=== PATIENT | female | born 1950 | race Caucasian/White ===

== ENCOUNTER → 2017-09-05 | Outpatient (CLI) | payer MEDICARE, OTHER ==
--- NOTE | 2017-09-05 14:48 | BD ---
EXAMINATION TYPE: MG DEXA axial skeleton. DATE OF EXAM: 09/05/2017 COMPARISON: NONE CLINICAL HISTORY: Height: 63 Weight: 134.4 FRAX RISK QUESTIONS: Alcohol (3 or more units per day): no Family History (Parent hip fracture): no Glucocorticoids (More than 3mos): yes (Ex: prednisone, prednisolone, methylprednisolone, dexamethasone, and hydrocortisone). History of Fracture in Adulthood: no Secondary Osteoporosis: 1. Type 1 Diabetes: no 2. Hyperthyroidism: no 3. Menopause before 45: no 4. Malnutrition: no 5. Chronic liver disease: no Rheumatoid Arthritis: yes Current Tobacco Use: no RISK FACTORS HISTORY OF: Family History of Osteoporosis: unsure Active: yes Diet low in dairy products/other sources of calcium: no Postmenopausal woman: age 49 Lost more than 2 inches in height since high school: no Adrenal Insufficiency: no MEDICATIONS: STEROIDS FOR ASTHMA Additional History: EXAM MEASUREMENTS: Bone mineral densitometry was performed using the EpiGa[employer] System. 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 NOTE: T-SCORE=SD OF THE YOUNG ADULT MEAN.
--- NOTE | 2017-09-08 11:01 | MM ---
Reason for exam: screening (asymptomatic). Last mammogram was performed 1 year and 7 months ago. History: Patient is postmenopausal and is nulliparous. Family history of breast cancer in sister at age 54. Took hormonal contraceptives for 5 years beginning at age 18. Physical Findings: A clinical breast exam by your physician is recommended on an annual basis and results should be correlated with mammographic findings. MG 3D Screening Mammo W/Cad Bilateral CC and MLO view(s) were taken. Prior study comparison: February 17, 2016, bilateral MG screening mammo w CAD. December 26, 2014, bilateral MG screening mammo w CAD. The breast tissue is heterogeneously dense. This may lower the sensitivity of mammography. No suspicious abnormality. No significant changes when compared with prior studies. ASSESSMENT: Negative, BI-RAD 1 RECOMMENDATION: Routine screening mammogram of both breasts in 1 year.
== END | disposition home or self-care (01) ==
LOC: RADMAMWWP 08:59
PROVIDERS: ATTEND Family Medicine
DX: Z12.31 Encounter for screening mammogram for malignant neoplasm of breast (principal); M85.88 Other specified disorders of bone density and structure, other site; M81.0 Age-related osteoporosis without current pathological fracture
CPT/HCPCS: 77063; 77067; 77080

== ENCOUNTER → 2018-01-09 | Outpatient (CLI) | payer MEDICARE, OTHER ==
--- NOTE | 2018-01-09 12:01 | MR ---
EXAMINATION TYPE: MR shoulder LT wo con DATE OF EXAM: 01/09/2018 COMPARISON: HISTORY: Pain in bilateral shoulders TECHNIQUE: Multiplanar, multisequence imaging of the left shoulder is performed without contrast. FINDINGS: Bicipital tendon appears to be displaced in from the bicipital groove. There is increased f luid surrounding the tendon compatible tendinosis. Intracapsular portion of the tendon appears intact . Diffuse increased signal throughout the distal margin of the subscapularis tendon including the inser tion suggestive of at least a partial through thickness tear. No retraction. There is intrasubstance signal involving the infraspinatus tendon near the musculotendinous junction. There is no through thickness tear. No retraction. There is a partial through thickness tear involving the anterior anterior fibers of the supraspinatus tendon with no retraction. DeGraff there is a small amount of fluid within the joint space as well a s within the subdeltoid bursa. Bony labrum are intact. Inferior glenohumeral ligament is intact. No evidence of marrow edema or contusion. Suprascapular Notch has a normal appearance. IMPRESSION: 1. The biceps tendon appears dislocated from the bicipital groove and findings are suggestive of bici pital tendinosis. At the level of the neck of the humerus there appears to be intrasubstance split te ar of the biceps tendon. 2. There is an 11 mm through thickness tear anterior fibers distal margin supraspinatus tendon with n o retraction. 3. Diffuse tendinopathy and partial tear with no retraction distal subscapularis tendon. 4. Tendinopathy infraspinatus tendon.
--- NOTE | 2018-01-09 15:08 | MR ---
EXAMINATION TYPE: MR shoulder RT wo con DATE OF EXAM: 01/09/2018 COMPARISON: HISTORY: Pain in bilateral shoulders TECHNIQUE: Multiplanar, multisequence imaging of the right shoulder is performed without contrast. FINDINGS: Rotator Cuff: There is abnormal intrasubstance signal involving the distal margin of the supraspinatu s and infraspinatus tendons compatible with tendinopathy. There is a partial through thickness tear o f the anterior fibers near the insertion measuring 6 mm. No retraction. Additional focal area of abno rmal signal along the undersurface of the supraspinatus tendon near the insertion at the level of its mid fibers measuring 4 mm compatible with a partial undersurface tear. Subscapularis tendon is intact. There is mild intrasubstance signal near the insertion suggestive of tendinopathy. Acromioclavicular Joint: Hypertrophy of the AC joint is noted with mass effect compatible with imping ement. Glenohumeral Joint: Small amount of fluid in the joint space. Glenohumeral ligaments appear intact. Labrum: The labrum appears grossly intact given limitation of non-arthrogram study. Biceps Tendon: The bicipital tendon appears to be displaced from the bicipital groove and there is in creased fluid surrounding the tendon compatible tendinosis. Tendon is not seen within the rotator int erval to the level of the biceps anchor. No retraction. Bone marrow signal: Focal areas of abnormal marrow signal involving the humeral head likely related t o cystic changes from chronic impingement. IMPRESSION: 1. Bicipital tendon is displaced from the bicipital groove with findings compatible with tendinosis. There is poor visualization the tendon within the rotator interval. Biceps tendon tear is not exclude d. 2. Tendinopathy of the supra and infraspinatus tendons with partial through thickness tear measuring 6 mm within the anterior fibers of the supraspinatus tendon near the insertion.
== END | disposition home or self-care (01) ==
LOC: RADMRIMAIN 06:42
PROVIDERS: ATTEND Family Medicine
DX: M25.512 Pain in left shoulder (principal); M25.511 Pain in right shoulder

== ENCOUNTER 2018-03-25 06:49 | Day surgery (SDC) | payer MEDICARE, OTHER ==
[2018-03-18 16:02] VITALS: BMI 24.1
--- NOTE | 2018-03-24 13:49 | HP ---
HISTORY AND PHYSICAL DATE OF SERVICE: 03/25/2018 Angela Yung, a 68-year-old patient is seen with progressive left shoulder pain. We discussed treatment options. She elected to proceed with arthroscopy. Consent was obtained. PAST MEDICAL HISTORY: Hypothyroidism, asthma. PAST SURGICAL HISTORY: Noncontributory. MEDICATIONS: 1. ProAir. 2. Pulmicort. 3. Ibuprofen. ALLERGIES: CLINDAMYCIN. SOCIAL HISTORY: Patient denies tobacco use. PHYSICAL EXAMINATION EVALUATION OF LEFT SHOULDER: Flexion 130 degrees, abduction 110 degrees, external rotation is 50 degrees with weakness, tenderness along the anterior lateral acromion rotator cuff insertion site. Impingement sign is positive at 80 degrees. Drop-arm sign is positive. Distal neurovascular exam is intact. LEFT SHOULDER RADIOGRAPHS: Revealed a type 2 anterior acromion and acromioclavicular joint osteoarthritis. Left shoulder MRI revealed rotator cuff tear and partial biceps tendon tear. IMPRESSION: Left shoulder impingement with rotator cuff tear and partial biceps tendon tear. PLAN: Left shoulder arthroscopy with subacromial decompression, probable arthroscopic rotator cuff repair, possible biceps tenotomy and debridement. MMODL / IJN: [id number] /
[~2018-03-25 06:49] MED LIST: DEXAMETHASONE SOD PHOSPHATE 10 MG/ML 1 ML VIAL IV ONE; HYDROmorphone 0.5 MG/0.5 ML SYRINGE IVP PRN; LACTATED RINGERS 1,000 ML IV SCH; LIDOCAINE 1% 20 ML VIAL (10MG/ML) FOR IV START INTRADERMA PRN; MIDAZOLAM 2 MG/2 ML VIAL IV PRN; ONDANSETRON 4 MG/2 ML VIAL IVP ONE; SCOPOLAMINE 1.5MG/72HR PATCH TRANSDERM ONE; ceFAZolin 1,000 MG in EMPTY BAG 1 BAG IVPB ONE
[2018-03-25 07:30] LABS: Glucose,Whole Blood 87 mg/dL (75-99)
[2018-03-25] MEDS ORDERED: PROPOFOL 10 MG/ML 20 ML VIAL IV ONE (08:26)
[2018-03-25] MEDS ORDERED: NEOSTIGMINE 1 MG/ML 10 ML VIAL ONE (08:26)
[2018-03-25] MEDS ORDERED: SUCCINYLCHOLINE CHLORIDE 100 MG/5 ML SYR IV ONE (08:26)
[2018-03-25] MEDS ORDERED: ePHEDrine SULFATE/0.9% NACL/PF 50 MG/5 ML SYRINGE IV ONE (08:26)
[2018-03-25] MEDS ORDERED: ROCURONIUM BROMIDE 10 MG/ML 10 ML VIAL IV ONE (08:26)
[2018-03-25] MEDS ORDERED: GLYCOPYRROLATE 0.2 MG/ML 2 ML VIAL ONE (08:26)
[2018-03-25] MEDS ORDERED: ROPIVACAINE 5 MG/ML 30 ML VIAL ONE (08:26)
[2018-03-25] MEDS ORDERED: LIDOCAINE 1% INJ 10MG/ML (20 ML MDV) ONE (08:26)
[2018-03-25] MEDS ORDERED: LACTATED RINGERS 1,000 ML IV ONE (09:45)
--- NOTE | 2018-03-25 09:58 | P.ONQ ---
Anesthesiology Proc Note - PNB - Peripheral Nerve Block Performed Left Interscalene Single Time Out Performed: Yes Procedure Start Time: 07:56 Procedure Stop Time: 08:05 Indication: Acute Post-Operative Pain, Analgesia, Requested by physician Sedation Type: Sedate with meaningful contact maintained Preparation: Sterile Prep Position: Supine Catheter: None Needle Size: 50mm (2"), 150mm (6") Needle Gauge: 21 Technique: Ultrasound Injectate: 0.5% Ropivacaine (see comment for volume) Blood Aspirated: No Pain Paresthesia on Injection Noted: No Resistance on Injection: Normal Events: Uneventful and Well Tolerated (20 ml Ropivicaine)
[2018-03-25 10:26] VITALS: TEMP 97
--- NOTE | 2018-03-25 10:31 | P.OP ---
Date of Procedure: 03/25/18 Preoperative Diagnosis: Left shoulder impingement Postoperative Diagnosis: 1. Left shoulder rotator cuff tear 2. Left shoulder impingement 3. Left shoulder acromioclavicular joint osteoarthritis 4. Left shoulder partial long head biceps tendon tear 5. Left shoulder superior labral tear Procedure(s) Performed: 1. Left shoulder arthroscopic rotator cuff repair 2. Left shoulder arthroscopic subacromial decompression 3. Left shoulder arthroscopic Katy procedure 4. Left shoulder arthroscopic biceps tenotomy 5. Left shoulder arthroscopic debridement labral tear Implants: 2Arthrex 4.75 swivel lock anchors 2Arthrex 5.5 swivel lock anchors Anesthesia: GETA, regional (Interscalene block) Surgeon: Dinh Stephenson Aircraft Engine Assembler #1: Ken Leija Estimated Blood Loss (ml): 13 Pathology: none sent Condition: stable Disposition: PACU Indications for Procedure: 68-year-old patient seen with progressive left shoulder pain. After having treatment options discussed, she elected to proceed with arthroscopy. Operative Findings: see description of procedure Description of Procedure: Patient underwent an interscalene block by department of anesthesia. The patient was then taken to the operative suite. The patient underwent a general anesthetic by the department of anesthesia. The patient was placed into a lateral position and secured. There was appropriate padding of the bony prominence. Left shoulder was then prepped and draped in normal sterile orthopedic fashion. We placed the extremity in 10 pounds of longitudinal traction. A posterior incision was now made for a posterior working portal site. The trocar and cannula were inserted into the glenohumeral joint. Arthroscopy was initiated. Spinal needle was now inserted anteriorly, to ascertain the anterior working portal site. An incision was now made in that area, a trocar was inserted followed by a probe. There were grade 1/2 chondromalacia changes of the humeral head and grade 2 chondromalacia changes central portion glenoid fossa. There was superficial tearing of the superior labrum. There was partial tearing long head biceps tendon. There is a full- thickness rotator cuff tear clearly visualized from glenohumeral side. I performed an arthroscopic biceps tenotomy. I debrided the superficial labral tear down to stable tissue. The residual labrum appeared stable. Instruments were now removed from glenohumeral joint. Utilizing the posterior working portal site, the trocar and cannula were inserted into the subacromial space. Arthroscopy initiated. I made an incision 2 fingerbreadths lateral to the acromion. I introduced my trocar followed by my ArthroCare ablator. I now began ablating thick subacromial bursal tissue, which exposed the undersurface of the anterior acromion. There was diminished subacromial space. There was a very prominent anterior acromion. A motorized bur was introduced and a subacromial decompression was performed. I also excised some osteophytes off the inferior aspect of the distal clavicle. The AC joint was visualized and noted to be fairly arthritic. The motorized bur was introduced in the anterior portal site and a Katy procedure was performed without difficulty, decompressing the AC joint nicely. I turned my attention to the rotator cuff. There was a 2.5 cm rotator cuff tear. I debrided the margins getting down to stable tendon tissue. The defect now measured 3 cm. I introduced my motorized bur and abraded the footprint area, getting some petechial bleeding. I now made an accessory portal site off the lateral aspect of the acromion. I punched two holes medial for medial row fixation with the assistance of Keyon CONDON carefully tapping the punch with a mallet as I held the punch and the camera. I now introduced both anchors into the pre- punched holes and Keyon CONDON tapped them with the mallet as I held anchors and the camera. Keyon CONDON now screwed the anchors in place a while I held the anchor guide and camera. All 8 limbs of suture were now passed through good bites of rotator cuff tendon. I now punched 2 holes for lateral row fixation again I held the punch and camera while Keyon CONDON used a mallet to tap in the punch. We now passed sutures through both anchors and individually I introduced the anchors into the pre-punch holes I held the anchor guide in position with one hand holding the camera with the other hand while Keyon CONDON tensioned the sutures and screwed in the anchors one at a time. All residual suture limbs were now clipped. We had good compression of the tendon along the entire footprint. I injected 1 mL Renue intra-articular. Instruments now removed from the portal sites. All portal sites were approximated with nylon suture. Sterile dressings were applied followed by a shoulder immobilizer. Ken CONDON assisted in this complex case. The patient was awakened, transferred to a bed, and taken to recovery in stable condition.
[2018-03-25 11:47] VITALS: BP 145/67; PULSE 70; RESP 16
== END 2018-03-25 12:30 | disposition home or self-care (01) ==
LOC: OR 06:49
PROVIDERS: ATTEND Orthopaedic Surgery
DX: M75.102 Unspecified rotator cuff tear or rupture of left shoulder, not specified as traumatic (principal); M75.42 Impingement syndrome of left shoulder; M19.012 Primary osteoarthritis, left shoulder; S46.112A Strain of muscle, fascia and tendon of long head of biceps, left arm, initial encounter; S43.432A Superior glenoid labrum lesion of left shoulder, initial encounter; X58.XXXA Exposure to other specified factors, initial encounter; M94.212 Chondromalacia, left shoulder; M25.712 Osteophyte, left shoulder; K44.9 Diaphragmatic hernia without obstruction or gangrene; E11.9 Type 2 diabetes mellitus without complications; K21.9 Gastro-esophageal reflux disease without esophagitis; E03.9 Hypothyroidism, unspecified; J45.909 Unspecified asthma, uncomplicated; Z79.1 Long term (current) use of non-steroidal anti-inflammatories (NSAID); Z79.51 Long term (current) use of inhaled steroids; Z79.899 Other long term (current) drug therapy; Z88.1 Allergy status to other antibiotic agents
CPT/HCPCS: 29826; 29827; 29824; 64415; C1713 ×3; C1765; J2250; J1100; J2710; J2405; J2001; J0690; J2795; J0330; J2704

== ENCOUNTER → 2018-10-22 | Outpatient (CLI) | payer MEDICARE, OTHER ==
--- NOTE | 2018-10-27 13:31 | MM ---
Reason for exam: screening (asymptomatic). Last mammogram was performed 1 year and 2 months ago. History: Patient is postmenopausal and is nulliparous. Family history of breast cancer in sister at age 54. Took hormonal contraceptives for 5 years beginning at age 18. Physical Findings: A clinical breast exam by your physician is recommended on an annual basis and results should be correlated with mammographic findings. MG 3D Screening Mammo W/Cad Bilateral CC and MLO view(s) were taken. Prior study comparison: September 05, 2017, bilateral MG 3d screening mammo w/cad. February 17, 2016, bilateral MG screening mammo w CAD. The breast tissue is heterogeneously dense. This may lower the sensitivity of mammography. Benign appearing bilateral calcifications. No suspicious abnormality. Left intramammary node is stable. ASSESSMENT: Benign, BI-RAD 2 RECOMMENDATION: Routine screening mammogram of both breasts in 1 year.
== END ==
LOC: RADMAMWWP 09:01
PROVIDERS: ATTEND Family Medicine
DX: Z12.31 Encounter for screening mammogram for malignant neoplasm of breast (principal)
CPT/HCPCS: 77063; 77067

== ENCOUNTER → 2019-06-21 | Outpatient (CLI) | payer MEDICARE, OTHER ==
--- NOTE | 2019-06-21 15:55 | US ---
EXAMINATION TYPE: US carotid duplex BILAT DATE OF EXAM: 06/21/2019 COMPARISON: NONE CLINICAL HISTORY: H53.13 Sudden visual loss. EXAM MEASUREMENTS: RIGHT: Peak Systolic Velocity (PSV) cm/sec ----- Right CCA: 67.7 ----- Right ICA: 108.4 ----- Right ECA: 95.2 ICA/CCA ratio: 1.6 RIGHT: End Diastole cm/sec ----- Right CCA: 17.1 ----- Right ICA: 39.1 ----- Right ECA: 17.1 LEFT: Peak Systolic Velocity (PSV) cm/sec ----- Left CCA: 59.8 ----- Left ICA: 116.0 ----- Left ECA: 69.4 ICA/CCA ratio: 1.9 LEFT: End Diastole cm/sec ----- Left CCA: 17.1 ----- Left ICA: 31.8 ----- Left ECA: 15.4 VERTEBRALS (direction of flow): Right Vertebral: Antegrade Left Vertebral: Antegrade Rhythm: Normal No significant stenosis seen, no elevated velocities. Vessels are very tortuous, causing mildly eleva amy ICA's as compared to CCA's. IMPRESSION: Mild degree of grayscale atheromatous plaquing with no sonographically evident hemodynam ically significant stenosis within either visualized carotid arterial system. Criteria for Assigning % of Stenosis / Diameter reduction (Estimation based on the indirect measurements of the internal carotid artery velocities (ICA PSV). 1. Normal (no stenosis)=ICA PSV < 125 cm/s: ratio < 2.0: ICA EDV<40 cm/s. 2. Less than 50% stenosis=ICA PSV < 125 cm/s: ratio < 2.0: ICA EDV<40 cm/s. 3. 50 to 69% stenosis=ICA PSV of 125 to 230 cm/s: ration 2.0 ? 4.0: ICA EDV 40-100 cm/s. 4. Greater than 70% stenosis to near occlusion= ICA PSV > 230 cm/s: ratio > 4.0: ICA EDV > 100 cm/s. 5. Near occlusion= ICA PSV velocities may be low or undetectable: variable ratio and ICA EDV. 6. Total occlusion=unable to detect flow.
== END | disposition home or self-care (01) ==
LOC: RADUSWWP 15:19
PROVIDERS: ATTEND Ophthalmology
DX: I65.23 Occlusion and stenosis of bilateral carotid arteries (principal)
CPT/HCPCS: 93880

== ENCOUNTER → 2019-12-08 | Outpatient (CLI) | payer MEDICARE ==
--- NOTE | 2019-12-10 08:52 | MM ---
Reason for exam: screening (asymptomatic). Last mammogram was performed 1 year and 2 months ago. History: Patient is postmenopausal and is nulliparous. Family history of breast cancer in sister at age 54. Took hormonal contraceptives for 5 years beginning at age 18. Physical Findings: A clinical breast exam by your physician is recommended on an annual basis and results should be correlated with mammographic findings. MG 3D Screening Mammo W/Cad Bilateral CC and MLO view(s) were taken. Prior study comparison: October 22, 2018, bilateral MG 3d screening mammo w/cad. September 05, 2017, bilateral MG 3d screening mammo w/cad. There are scattered fibroglandular densities. No significant changes when compared with prior studies. ASSESSMENT: Negative, BI-RAD 1 RECOMMENDATION: Routine screening mammogram of both breasts in 1 year.
== END | disposition home or self-care (01) ==
LOC: RADMAMWWP 16:17
PROVIDERS: ATTEND Family Medicine
DX: Z12.31 Encounter for screening mammogram for malignant neoplasm of breast (principal)
CPT/HCPCS: 77063; 77067

== ENCOUNTER → 2020-06-19 | Outpatient (CLI) | payer MEDICARE ==
[2020-06-19 11:51] LABS: Basophils # (A) 0.1 k/uL (0-0.2); Basophils % (A) 1 %; Eosinophils # (A) 0.3 k/uL (0-0.7); Eosinophils % (A) 3 %; HCT 46.6 % (34.0-46.0); HGB 14.9 gm/dL (11.4-16.0); Lymphocytes # (A) 2.1 k/uL (1.0-4.8); Lymphocytes % (A) 20 %; MCH 29.3 pg (25.0-35.0); MCV 91.4 fL (80.0-100.0); Mean Platelet Volume 7.5; Monocytes # (A) 0.7 k/uL (0-1.0); Monocytes % (A) 7 %; Neutrophils # (A) 6.8 k/uL (1.3-7.7); Neutrophils % (A) 68 %; Platelet Count 285 k/uL (150-450); RDW 13.1 % (11.5-15.5); WBC 10.1 k/uL (3.8-10.6)
[2020-06-19 12:12] LABS: Potassium 4.9 mmol/L (3.5-5.1)
== END | disposition home or self-care (01) ==
LOC: LABPAT 09:06
PROVIDERS: ATTEND Orthopaedic Surgery
DX: Z01.812 Encounter for preprocedural laboratory examination (principal); M75.41 Impingement syndrome of right shoulder
CPT/HCPCS: 36415; 80051; 85025; 93005

== ENCOUNTER 2020-06-28 06:46 | Day surgery (SDC) | payer MEDICARE ==
[2020-06-21 15:45] VITALS: BMI 23.9
--- NOTE | 2020-06-27 15:05 | HP ---
HISTORY AND PHYSICAL Surgery is scheduled for 06/28/2020. Angela Yung is a 70-year-old patient seen with progressive right shoulder pain. We discussed options. She elected to proceed with right shoulder arthroscopy. Consent was obtained. PAST MEDICAL HISTORY: Asthma, hypothyroidism. PAST SURGICAL HISTORY: Left shoulder arthroscopy. DAILY MEDICATIONS: 1. Albuterol. 2. Ibuprofen. ALLERGIES: CLINDAMYCIN. SOCIAL HISTORY: She denies tobacco use. PHYSICAL EVALUATION OF THE RIGHT SHOULDER: Flexion 140, abduction 120, external rotation is 40 with weakness, tenderness along the anterior lateral acromion and rotator cuff insertion site. Impingement positive at 90. Drop-arm sign is positive. Distal neurovascular exam is intact. Radiographs right shoulder type 2 acromion, acromioclavicular joint osteoarthritis and cystic changes of the greater tuberosity. Right shoulder MRI revealed partial rotator cuff tear, partial biceps tendon tear. IMPRESSION: 1. Right shoulder impingement with rotator cuff tear. 2. Right shoulder partial long head biceps tendon tear. 3. Hypothyroidism. 4. Asthma. PLAN: Right shoulder arthroscopy with subacromial decompression, rotator cuff repair, biceps tendon release and debridement. MMODL / IJN: [id number] /
[~2020-06-28 06:46] MED LIST changes: -DEXAMETHASONE SOD PHOSPHATE 10 MG/ML 1 ML VIAL IV ONE; +DEXAMETHASONE SOD PHOSPHATE 4 MG/ML 1 ML VIAL IV ONE; -HYDROmorphone 0.5 MG/0.5 ML SYRINGE IVP PRN; +LIDOCAINE 1% (10MG/ML) FOR IV START INTRADERMA PRN; -LIDOCAINE 1% 20 ML VIAL (10MG/ML) FOR IV START INTRADERMA PRN; -MIDAZOLAM 2 MG/2 ML VIAL IV PRN; -SCOPOLAMINE 1.5MG/72HR PATCH TRANSDERM ONE; -ceFAZolin 1,000 MG in EMPTY BAG 1 BAG IVPB ONE
[2020-06-28] MEDS ORDERED: MIDAZOLAM 2 MG/2 ML VIAL IV PRN (07:00)
[2020-06-28] MEDS ORDERED: fentaNYL (PF) 50 MCG/ML 2 ML AMP IVP PRN (07:00)
[2020-06-28 07:35] LABS: Glucose,Whole Blood 99 mg/dL (75-99)
[2020-06-28] MEDS ORDERED: MIDAZOLAM 2 MG/2 ML VIAL IV ONE (07:58)
--- NOTE | 2020-06-28 08:07 | P.ANPRN ---
Procedure Note - Anesthesia - Nerve Block Performed Right Interscalene Single Time Out Performed: Yes ([id number]) Date of Procedure: 06/28/20 Procedure Start Time: 07:54 Procedure Stop Time: 08:03 Location of Patient: PreOp Indication: Acute Post-Operative Pain, Analgesia, Requested by Surgeon Specifically requested for management of pain by : Dinh Stephenson Sedation Type: Sedate with meaningful contact maintained Preparation: Sterile Prep Position: Supine Needle Types: Pajunk Needle Gauge: 20 Ultrasound used to visualize needle placement: Yes Ultrasound used to observe medication spread: Yes Injectate: Other (see comment) (with 10 mg dexamethasone) Blood Aspirated: No Pain Paresthesia on Injection Noted: No Resistance on Injection: Normal Image Stored and Saved: Yes Events: Uneventful and Well Tolerated
[2020-06-28] MEDS ORDERED: SUCCINYLCHOLINE CHLORIDE 100 MG/5 ML SYR IV ONE (08:12)
[2020-06-28] MEDS ORDERED: PROPOFOL 10 MG/ML 20 ML VIAL IV ONE (08:12)
[2020-06-28] MEDS ORDERED: fentaNYL (PF) 50 MCG/ML 2 ML AMP ONE (08:12)
[2020-06-28] MEDS ORDERED: LIDOCAINE 1% INJ 10MG/ML (20 ML MDV) ONE (08:12)
[2020-06-28] MEDS ORDERED: ROPIVACAINE 5 MG/ML 30 ML VIAL ONE (08:12)
[2020-06-28] MEDS ORDERED: MIDAZOLAM 2 MG/2 ML VIAL ONE (08:12)
[2020-06-28] MEDS ORDERED: DEXAMETHASONE SOD PHOSPHATE 4 MG/ML 1 ML VIAL ONE (08:12)
[2020-06-28 10:11] VITALS: TEMP 97
--- NOTE | 2020-06-28 10:17 | P.OP ---
Date of Procedure: 06/28/20 Preoperative Diagnosis: Right shoulder impingement Postoperative Diagnosis: 1. Right shoulder rotator cuff tear 2. Right shoulder impingement 3. Right shoulder acromioclavicular joint osteoarthritis 4. Right shoulder partial long head biceps tendon tear 5. Right shoulder superficial labral tear Procedure(s) Performed: 1. Right shoulder arthroscopic rotator cuff repair 2. Right shoulder arthroscopic subacromial decompression 3. Right shoulder arthroscopic Katy procedure 4. Right shoulder arthroscopic biceps tenotomy 5. Right shoulder arthroscopic debridement labral tear Implants: 4Arthrex swivel lock anchors Anesthesia: GETA, regional (Interscalene block) Surgeon: Dinh Stephenson Dragsaw Operator #1: Ken Leija Estimated Blood Loss (ml): 6 Pathology: none sent Condition: stable Disposition: PACU Indications for Procedure: 70-year-old patient seen with progressive right shoulder pain. After having treatment options discussed, she elected to proceed with arthroscopy. Operative Findings: See description of procedure Description of Procedure: Patient underwent an interscalene block by department of anesthesia. The patient was then taken to the operative suite. The patient underwent a general anesthetic by the department of anesthesia. The patient was placed into a lateral position and secured. There was appropriate padding of the bony p rominence. Right shoulder was then prepped and draped in normal sterile orthopedic fashion. We placed the extremity in 10 pounds of longitudinal traction. A posterior incision was now made for a posterior working portal site. The trocar and cannula were inserted into the glenohumeral joint. Arthroscopy was initiated. Spinal needle was now inserted anteriorly, to ascertain the anterior working portal site. An incision was now made in that area, a trocar was inserted followed by a probe. There was significant tearing of the long head biceps tendon. There was some superficial tearing of the anterior labrum. There was an area in the central glenoid of grade 3 chondromalacia. There was an obvious rotator cuff tear. I performed a biceps tenotomy. I debrided the superficial labral tear. I again probe the labrum and it was found to be stable. Instruments were now removed from the glenohumeral joint. Utilizing the posterior working portal site, the trocar and cannula were inserted into the subacromial space. Arthroscopy initiated. I made an incision 2 fingerbreadths lateral to the acromion. I introduced my trocar followed by my ArthroCare ablator. I now began ablating thick subacromial bursal tissue, which exposed the undersurface of the anterior acromion. There was diminished subacromial space. There was a very prominent anterior acromion. A motorized bur was introduced and a subacromial decompression was performed. I also excised some osteophytes off the inferior aspect of the distal clavicle. The AC joint was visualized and noted to be fairly arthritic. The motorized bur was introduced in the anterior portal site and a Katy procedure was performed without difficulty, decompressing the AC joint nicely. I turned my attention to the rotator cuff. There was a 3 cm rotator cuff tear. I debrided the margins getting down to stable tendon tissue. I introduced my motorized bur and abraded the footprint area, getting some petechial bleeding. I now made an accessory portal site off the lateral aspect of the acromion. I punched 2 holes medial for medial row fixation with the assistance of Keyon CONDON carefully tapping the punch with a mallet as I held the punch and the camera. I now introduced both anchors into the pre-punched holes and Keyon CONDON tapped them with the mallet as I held anchors and the camera. Keyon CONDON now screwed the anchors in place a while I held the anchor guide and camera. All 8 limbs of suture were now passed through good bites of rotator cuff tendon. I now punched 2 holes for lateral row fixation again I held the punch and camera while Keyon CONDON used a mallet to tap in the punch. We now passed sutures through both anchors and individually I introduced the anchors into the pre-punch holes I held the anchor guide in position with one hand holding the camera with the other hand while Keyon CONDON tensioned the sutures and screwed in the anchors one at a time. All residual suture limbs were now clipped. We had good compression of the tendon along the entire footprint. Injected 1 mL Renyte intra-articular. Instruments now removed from the portal sites. All portal sites were approximated with nylon suture. Sterile dressings were applied followed by a shoulder immobilizer. Ken CONDON assisted in this complex case. The patient was awakened, transferred to a bed, and taken to recovery in stable condition.
[2020-06-28 11:40] VITALS: BP 160/69; PULSE 76; RESP 18
== END 2020-06-28 11:58 | disposition home or self-care (01) ==
LOC: OR 06:46
PROVIDERS: ATTEND Orthopaedic Surgery
DX: M75.101 Unspecified rotator cuff tear or rupture of right shoulder, not specified as traumatic (principal); M25.811 Other specified joint disorders, right shoulder; M94.211 Chondromalacia, right shoulder; M19.011 Primary osteoarthritis, right shoulder; S46.111A Strain of muscle, fascia and tendon of long head of biceps, right arm, initial encounter; S43.431A Superior glenoid labrum lesion of right shoulder, initial encounter; X58.XXXA Exposure to other specified factors, initial encounter; M25.711 Osteophyte, right shoulder; J45.909 Unspecified asthma, uncomplicated; E03.9 Hypothyroidism, unspecified; K21.9 Gastro-esophageal reflux disease without esophagitis; K44.9 Diaphragmatic hernia without obstruction or gangrene; Z79.1 Long term (current) use of non-steroidal anti-inflammatories (NSAID); Z79.899 Other long term (current) drug therapy; Z88.1 Allergy status to other antibiotic agents
CPT/HCPCS: 29826; 29827; 29824; 64415; 76942; C1713 ×3; Q4212; J2250; J1100; J0690; J2405; J2001; J3010; J2795; J0330; J2704

== ENCOUNTER → 2021-01-30 | Outpatient (CLI) | payer MEDICARE ==
--- NOTE | 2021-01-30 09:05 | BD ---
EXAMINATION TYPE: Axial Bone Density DATE OF EXAM: 01/30/2021 COMPARISON: 09.05.2017 CLINICAL HISTORY: 70 YR OLD FEMALE....ICD-10 CODE: M81.0 OSTEOPOROSIS Height: 62.3 Weight: 135 FRAX RISK QUESTIONS: Glucocorticoids (More than 3mos): YES (Ex: prednisone, prednisolone, methylprednisolone, dexamethasone, and hydrocortisone). Rheumatoid Arthritis: YES, STATES PT RISK FACTORS HISTORY OF: Postmenopausal woman: YES, AT ABOUT 49 YRS OLD Hyperparathyroidism: NO Adrenal Insufficiency: YES MEDICATIONS: Prednisone or other steroids: YES, FOR ASTHMA FOR ABOUT 10 YRS Thyroid Medications: HOLISTIC MEDS ONLY Osteoporosis Medications: IN THE PAST ONLY, STOPPED 2019 Additional Medications: VITD AND CALCIUM, VALERIAN ROOT, THYROTONE, ATRENAGY FOR ADRENAL GLANDS, OTC HOLISTIC MEDS ONLY Additional History: ADRENAL GLAND PROBLEMS, STATES PT, PT USES HOLISTIC APPROACH TO HER HEALTH NEEDS, RA EXAM MEASUREMENTS: Bone mineral densitometry was performed using the [employer] System. Bone mineral density as measured about the Lumbar spine is: ----- L1-L4(G/cm2): 1.043 T Score Values are as follows: ----- L1: -1.9 ----- L2: -1.9 ----- L3: -0.4 ----- L4: -0.7 ----- L1-L4: -1.1 Bone mineral density has: Increased 17.1% since study of: 09.05.2017 Bone mineral density about the R hip (g/cm2): 0.924 Bone mineral density about the L hip (g/cm2): 0.841 T Score values are as follows: -----R Neck: -1.0 -----L Neck: -1.9 -----R Total: -0.7 -----L Total: -1.3 Bone mineral density has: Increased 2.3% since study of: 09.05.2017 FRAX%s: THERE IS A 22.4% CHANCE FOR A MAJOR OSTEOPOROTIC FX AND A 5.2% FOR HIP......PROBABILITY F OR FX IN 10 YRS TIME IMPRESSION: Osteopenia (T Score between -2.5 and -1). There is slightly increased risk of fracture and the patient may be considered for treatment. Re-Screen 2-5 years. NOTE: T-SCORE=SD OF THE YOUNG ADULT MEAN.
--- NOTE | 2021-01-30 10:14 | MM ---
Reason for exam: screening (asymptomatic). Last mammogram was performed 1 year and 2 months ago. History: Patient is postmenopausal and is nulliparous. Family history of breast cancer in sister at age 54. Took hormonal contraceptives for 5 years beginning at age 18. Physical Findings: A clinical breast exam by your physician is recommended on an annual basis and results should be correlated with mammographic findings. MG 3D Screening Mammo W/Cad Bilateral CC and MLO view(s) were taken. Prior study comparison: December 08, 2019, bilateral MG 3d screening mammo w/cad. October 22, 2018, bilateral MG 3d screening mammo w/cad. There are scattered fibroglandular densities. Stable benign calcifications. There is no discrete abnormality. No significant changes when compared with prior studies. ASSESSMENT: Benign, BI-RAD 2 RECOMMENDATION: Routine screening mammogram of both breasts in 1 year.
== END | disposition home or self-care (01) ==
LOC: RADMAMWWP 07:23
PROVIDERS: ATTEND Family Medicine
DX: Z12.31 Encounter for screening mammogram for malignant neoplasm of breast (principal); Z78.0 Asymptomatic menopausal state; Z80.3 Family history of malignant neoplasm of breast; M85.80 Other specified disorders of bone density and structure, unspecified site
CPT/HCPCS: 77063; 77067; 77080

== ENCOUNTER → 2022-01-15 | Outpatient (CLI) | payer MEDICARE ==
--- NOTE | 2022-01-15 15:00 | US ---
EXAMINATION TYPE: US pelvic complete DATE OF EXAM: 01/15/2022 COMPARISON: NONE CLINICAL HISTORY: R10.2 PELVIC AND PERINEAL PAIN. TECHNIQUE: . Transabdominal sonographic images of the pelvis were acquired. EXAM MEASUREMENTS: Uterus: 6.0 x 1.9 x 4.2 cm Endometrial Stripe: 3.5mm Right Ovary: 1.9 x 0.7 x 1.5 cm Left Ovary: 2.1 x 0.8 x 1.8 cm 1. Uterus: Anteverted wnl 2. Endometrium: wnl 3. Right Ovary: wnl 4. Left Ovary: wnl 5. Bilateral Adnexa: wnl 6. Posterior cul-de-sac: no free fluid seen IMPRESSION: No discrete abnormality is visualized at this time.
== END | disposition home or self-care (01) ==
LOC: RADUSWWP 14:01
PROVIDERS: ATTEND Obstetrics & Gynecology
DX: R10.2 Pelvic and perineal pain (principal)
CPT/HCPCS: 76856

== ENCOUNTER → 2022-01-31 | Outpatient (CLI) | payer MEDICARE ==
--- NOTE | 2022-01-31 09:47 | MM ---
Reason for Exam: Screening (asymptomatic). Last screening mammogram was performed 12 month(s) ago. Patient History: Menarche at age 15. Patient has no children. Postmenopausal. Hormonal Contraceptives for 5 years from age 18 until age 23. Sister had breast cancer, age 54. Risk Values: Kaylyn 5 year model risk: 3.1%. NCI Lifetime model risk: 8.9%. Prior Study Comparison: 02/17/2016 Bilateral Screening Mammogram, [facility]. 09/05/2017 Bilateral Screening Mammogram, [facility]. 10/22/2018 Bilateral Screening Mammogram, [facility]. 12/08/2019 Bilateral Screening Mammogram, [facility]. 01/30/2021 Bilateral Screening Mammogram, [facility]. Tissue Density: There are scattered fibroglandular densities. Findings: Analyzed By CAD. There is no suspicious group of microcalcifications or new suspicious mass in either breast. Stable benign calcifications. No significant change from prior examination. Overall Assessment: Benign, BI-RAD 2 Management: Screening Mammogram of both breasts in 1 year. A clinical breast exam by your physician is recommended on an annual basis and results should be correlated with mammographic findings. Electronically signed and approved by: Bay Pacheco D.O.
== END | disposition home or self-care (01) ==
LOC: RADMAMWWP 07:14
PROVIDERS: ATTEND Family Medicine
DX: Z12.31 Encounter for screening mammogram for malignant neoplasm of breast (principal); Z78.0 Asymptomatic menopausal state; Z80.3 Family history of malignant neoplasm of breast
CPT/HCPCS: 77063; 77067

== ENCOUNTER → 2024-03-25 | Outpatient (CLI) | payer MEDICARE, OTHER ==
--- NOTE | 2024-03-26 07:54 | MM ---
Reason for Exam: Screening (asymptomatic). Last mammogram was performed 1 year(s) and 1 month(s) ago. Patient History: Menarche at age 15. Patient has no children. Postmenopausal. Hormonal Contraceptives for 5 years from age 18 until age 23. Sister had breast cancer, age 54. Risk Values: Kaylyn 5 year model risk: 3.2%. NCI Lifetime model risk: 7.7%. Prior Study Comparison: 01/30/2021 Bilateral Screening Mammogram, [facility]. 01/31/2022 Bilateral MG 3D screening mammo w/cad, [facility]. 03/05/2023 Bilateral MG 3D screening mammo w/cad, [facility]. Tissue Density: There are scattered areas of fibroglandular density. Findings: Analyzed By CAD. Right breast: There is no suspicious group of microcalcifications or new suspicious mass. Benign-appearing calcifications right breast. Left breast: There is no suspicious group of microcalcifications or new suspicious mass. Benign-appearing calcifications left breast. Overall Assessment: Benign, BI-RAD 2 Management: Screening Mammogram of both breasts in [address] [facility] will attempt to contact patient to return for supplemental views and ultrasound if indicated. Patient should continue monthly self-breast exams. A clinical breast exam by your physician is recommended on an annual basis. This exam should not preclude additional follow-up of suspicious palpable abnormalities. Note on Kaylyn scores and lifetime risk: 1. A Kaylyn score greater than 3% is considered moderate risk. If this is the case, consider specialist referral to assess eligibility for a risk reducing agent. 2. If overall lifetime risk for the development of breast cancer is 20% or higher, the patient may qualify for future screening with alternating mammogram and breast MRI. [facility], , 03/26/2024 7:51 AM. Electronically signed and approved by: Blair Whalen DO
== END | disposition home or self-care (01) ==
LOC: RADMAMWWP 11:10
PROVIDERS: ATTEND Family Medicine
CPT/HCPCS: 77063; 77067